=== PATIENT | female | born 1950 | race Caucasian/White ===

== ENCOUNTER 2020-10-05 11:28 | Day surgery (SDC) | payer OTHER ==
[~2020-10-05] VITALS: Ht 162.6 cm; Wt 85.6 kg
[~2020-10-05 11:28] MED LIST: ACETAMINOPHEN325 M1 PO; ALBUTEROL2.5 MG/31 INH
[2020-10-05 12:09] VITALS: BP 160/84
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
--- NOTE | 2020-10-10 13:08 | PATH ---
[facility] [place] [address] PATHOLOGY RPT PROCEDURE Name: CARI BARROSO Room #: DEP [facility]..#: [id number] Admission: 10/05/20 Date of : 46 Discharge: 10/05/20 Report #: [id number] Path Case #: [id number] [facility] Accession Number: [id number] . 01 Material submitted: . PART A: lid - LEFT LOWER LID - FROZEN SECTION. Modifiers: left, lower PART B: lid - ADDITIONAL SUPERIOR MARGIN - FROZEN SECTION. Modifiers: superior PART C: lid - ADDITIONAL INFERIOR MARGIN - FROZEN SECTION. Modifiers: inferior . 01 Clinical history: . EXCISION BASAL CELL CARCINOMA DS 10/05/ EXCISION BASAL CELL CARCINOMA . 02 Frozen section diagnosis: . FROZEN SECTION DIAGNOSES (Kim Hawkins MD) . FSA1, skin, left lower lid, excision: - BASAL CELL CARCINOMA. - Present at superior tip and inferior tip. . FSB1, additional superior margin, biopsy: - Negative for invasive carcinoma. . These findings are discussed with Dr. Pramod Esteves and a written report is placed in the patient's chart. . FROZEN SECTION GROSS DESCRIPTION Specimen A is received fresh from the OR labeled with the patient's name, and "left lower lid", consists of an ellipse of skin measuring 2.5 x 1.5 x 0.3 cm. The specimen is oriented as superior, lateral, inferior and medial. The superior to lateral to inferior margin is inked black, the inferior to medial margin is inked blue and the medial to superior margin is inked orange. The deep margin is inked black. At this point, the specimen is serially sectioned into five pieces and submitted entirely for frozen section as FSA1, this is subsequently submitted for permanent sections as A1. . Specimen B is received fresh from the OR labeled with the patient's name, and "additional superior margin", consists of an inverted triangular specimen with an indent towards the previous superior margin. The lateral side of the specimen is inked black and the medial side of the specimen is inked orange. The specimen is submitted en face with the true margin towards the frozen section surface as FSB1, this is subsequently submitted for permanent sections as B1. (IUV:olinda; 10/05/2020) . [address] [place] [address] PATHOLOGY RPT PROCEDURE Name: DHARMESHCARI LOGAN Room #: DEP [facility].#: [id number] Admission: 10/05/20 Date of : 46 Discharge: 10/05/20 Report #: [id number] Path Case #: [id number] Frozen section performed at [facility], [address] [place] [address]. IZV/QMS . 02 Diagnosis: A. Skin, left lower lid, excision: - BASAL CELL CARCINOMA. - All margins widely free of malignancy. - Focal perineural invasion identified, see comment. . B. Skin, additional superior margin, re-excision: - Reactive changes. - Negative for malignancy. . C. Skin, additional inferior margin, re-excision: - Reactive changes. - Negative for malignancy. (IUV:olinda; 10/09/2020) QMS 10/10/2020 1135 Local . 02 Comment: A properly controlled S100 immunohistochemical stain is performed on block A1 and it shows a single nerve amidst tumor with focal perineural invasion present. . The superior and inferior tips showed basal cell carcinoma on the frozen section slides. Permanent sections of the tips show no evidence of malignancy. These represent the true margins. The same was conveyed to Dr. Pramod Esteves in the morning of 10/10/20. (IUV:olinda; 10/09/2020) . 02 Electronically signed: . Kim Hawkins MD, Pathologist NPI- [id number] . 01 Gross description: . A. PLEASE SEE FROZEN SECTION GROSS DESCRIPTION. . B. PLEASE SEE FROZEN SECTION GROSS DESCRIPTION. . C. Received fresh from the OR labeled with the patient's name, and "additional inferior margin", consists of a thin strip of skin which is oriented additionally by Dr. Esteves as superior (representing the older inferior end of the specimen), and inferior which represents the new true margin and additionally as lateral as well as medial. The superior end of the specimen is inked black, and the inferior end of the specimen is inked [address] [address] PATHOLOGY RPT PROCEDURE Name: CARI BARROSO Room #: DEP [facility].#: [id number] Admission: 10/05/20 Date of : 46 Discharge: 10/05/20 Report #: [id number] Path Case #: [id number] blue. The specimen is submitted with the lateral margin for examination as C1. (IUV:olinda; 10/05/2020) /QMS 10/06/2020 1139 Local . 02 Pathologist provided ICD-10: C44.1192 . 02 CPT . 922304, 494235, 164010, [id number], [id number], [id number] Specimen Comment: A courtesy copy of this report has been sent to [phone] Specimen Comment: [phone] Specimen Comment: Report sent to / DR EDGE Performed at: 01 [facility] [address] [facility] [address], [place] [id number] MD Petr Galaviz MD Phone: [phone] Performed at: [address] [id number] MD Kim Hawkins MD Phone: [phone]
== END 2020-10-05 15:40 | disposition home or self-care (01) ==
LOC: OR 11:28 → TBA 11:28 → OR 12:18
PROVIDERS: ATTEND Ophthalmology
DX: C44.1192 Basal cell carcinoma of skin of left lower eyelid, including canthus (principal); J43.9 Emphysema, unspecified; F17.210 Nicotine dependence, cigarettes, uncomplicated; H40.9 Unspecified glaucoma; Z98.890 Other specified postprocedural states; Z79.899 Other long term (current) drug therapy; Z98.41 Cataract extraction status, right eye; Z98.42 Cataract extraction status, left eye
CPT/HCPCS: 50010; 50101; 50386; 50398; 51636; 56528; 56531; 62110; 62900; 70005